=== PATIENT | female | born 1970 | race Caucasian/White ===

== ENCOUNTER → 2016-06-14 | Outpatient (CLI) | payer OTHER ==
[~2016-06-14] MED LIST: ALBU17IN INH; BACL10TA PO; CHLO125TA PO; COPA1INJ SC; DIAZ10TA2 PO; FIOR1CAP PO; MARI2.5C PO; MAXA10TA14 PO; NABU50TA PO; NUCY75TA8 PO; OXYB5TA PO; OXYC15TA76 PO; PERC10TA17 PO; PREG50CA PO; SOMA350T PO; TIZA4CAP3 PO; VICO7.5T11 PO; ZOLO100T PO; [UNRECOGNIZED DRUG - CODE] PO; tps cream TD
--- NOTE | 2016-06-16 00:17 | ECWPNPC ---
PATIENT NAME: HANSA BELTRÁN : 1970 GENDER: FEMALE VISIT DATE: 06/14/2016 DISCHARGE DATE: 06/14/161817 VISIT LOCKED DATE TIME: PHYSICIAN: SILVIA ZARAGOZA RESOURCE: SILVIA ZARAGOZA REASON FOR APPOINTMENT 1. NECK/SHOULDER PAIN HISTORY OF PRESENT ILLNESS HISTORY OF PRESENT ILLNESS: PAIN THE PATIENT DESCRIBES THE PAIN... 46 YEAR OLD FEMALE PATIENT WITH HISTORY OF CHRONIC NECK, SHOULDER, AND BACK PAIN. PATIENT DESCRIBES THE PAIN ACHING, BURNING, THROBBING, SHOOTING, AND HAVING IT ALL THE TIME WITH A PAIN SCORE OF 7/10. PATIENT STATES THAT HER PAIN STARTED MANY YEARS AGO AND HAS ALSO BEEN DIAGNOSED WITH FIBROMYALGIA AND MS. PATIENT IS CURRENTLY USING OXYCODONE, BACLOFEN, LYRICA, TIZANIDINE, AND MARINOL TO AID IN PAIN RELIEF. MRS. BELTRÁN STATES THAT EVEN WITH THE MEDICATION SHE STILL HAS A SIGNIFICANT AMOUNT OF PAIN. PATIENT REPORTS THAT SHE IS CONSTANTLY IN PAIN AND AT THIS TIME HAS NOT FOUND SIGNIFICANT RELIEF IN INTERVENTIONS. FALL RISK SCREENING: SCREENING :NO FALLS IN THE PAST YEAR CURRENT MEDICATIONS TAKING FIORICET 50-325-40 MG TABLET 1 TABLET ORALLY TWICE A DAY NEEDED FOR MIGRAINES TAKING COPAXONE 40 MG/ML SOLUTION PREFILLED SYRINGE 1 ML SUBCUTANEOUS THREE TIMES A WEEK TAKING SERTRALINE HCL 100 MG TABLET 1.5 TABLET ORALLY ONCE A DAY TAKING MAXALT-GRAIN ELEVATOR SUPERINTENDENT 10 MG TABLET DISPERSIBLE 1 TABLET ON THE TONGUE AND ALLOW TO DISSOLVE NEEDED ONE TIME ORALLY NEEDED FOR MIGRAINE--MAY REPEAT IN 2 HOURS ONCE IF NEEDED TAKING CANE _ MISCELLANEOUS DIRECTED _ DIRECTED--MS (G35) TAKING ZOFRAN ODT 4 MG TABLET DISPERSIBLE 1 TABLET ON THE TONGUE AND ALLOW TO DISSOLVE ORALLY EVERY 6 HRS NEEDED TAKING CHLORTHALIDONE 25 MG TABLET 1/2 TABLET IN THE MORNING ORALLY ONCE A DAY TAKING IPRATROPIUM-ALBUTEROL 0.5-2.5 (3) MG/3ML SOLUTION 3 ML INHALATION EVERY 4-6 HOURS NEEDED FOR SOB/WHEEZING TAKING VENTOLIN HFA 108 (90 BASE) MCG/ACT AEROSOL SOLUTION 2 PUFFS NEEDED INHALATION EVERY 4 HRS FOR WHEEZING TAKING MARINOL 5 MG CAPSULE 1 CAPSULE ORALLY TWICE A DAY MDD2 3MOS SUPPLY CAT D CHRONIC PAIN TAKING TIZANIDINE HCL 4 MG TABLET 1.5 TABLET-2TAB ORALLY DAILY AT BEDTIME TAKING OXYCODONE HCL 15 MG TABLET 1 TABLET ORALLY Q6H MDD2 3MOS SUPPLY CAT D CHRONIC PAIN TAKING LYRICA 200 MG CAPSULE 1 CAPSULE ORALLY Q8H TID MDD3 3MOS SUPPLY CAT D CHRONIC PAIN TAKING BACLOFEN 20 MG TABLET 1 TABLET WITH FOOD OR MILK ORALLY EVERY 8 HOURS NEEDED NOT-TAKING FULL KIT NEBULIZER SET . MISCELLANEOUS DIRECTED P.O. J45.299 MEDICATION LIST REVIEWED AND RECONCILED WITH THE PATIENT PAST MEDICAL HISTORY MULTIPLE SCLEROSIS OTHER DISEASES OF VOCAL CORDS FIBROMYALGIA MIGRAINES ARTHRITIS DEPRESSION ANXIETY FATIGUE CHRONIC LOW BACK PAIN ASTHMA ALLERGIES PENICILLIN (FOR ALLERGIES USE ONLY): NOT SURE OF REACTION: ALLERGY AZITHROMYCIN: ALLERGY ZYBAN: ALLERGY CECLOR: ALLERGY BACTRIM DS: ALLERGY SULFA (FOR ALLERGY USE ONLY): ANAPHYLAXIS: ALLERGY ENVIRONMENTAL: SINUS CONGESTION, RUNNY EYES: ALLERGY SURGICAL HISTORY VOCAL CHORDS RESECTED 05/2008 TONSILLECTOMY, ADENOIDS CAUTERIZED, SINUS IRRIGATED 12/1985 LEFT CARPAL TUNNEL RELEASE 03/19/2015 FAMILY HISTORY NO FAMILY HISTORY DOCUMENTED. SOCIAL HISTORY GENERAL: TOBACCO USE ARE YOU A:CURRENT SMOKER HOW MANY CIGARETTES A DAY DO YOU SMOKE?11-20 HOW SOON AFTER YOU WAKE UP DO YOU SMOKE YOUR FIRST CIGARETTE?6-30 MIN HOW OFTEN DO YOU SMOKE CIGARETTES?EVERY DAY PATIENT COUNSELED ON THE DANGERS OF TOBACCO USE AND URGED TO QUIT: COUNCELED ON THE IMPORTANCE OF QUITTING, PT STATES SHE IS NOT READY TO QUIT AT THIS TIME. ARE YOU INTERESTED IN QUITTING?NOT READY TO QUIT LEARNING BARRIERS / SPECIAL NEEDS ORIENTED TO PLAN OF CARE: PATIENT, PAIN MANAGEMENT PATIENT, ORIENTED TO PLAN OF CARE: PATIENT, PAIN MANAGEMENT PATIENT. NEW PATIENT PAIN DIARY TODAY'S VISITNOTES FROM 0-10, WHAT LEVEL IS YOUR PAIN TODAY?0 PAIN CLINIC PFS, CLERGY, PUBLIC HEALTH REFERRALS PFS REFERRAL NEEDED?NO CLERGY REFERRAL NEEDED?NO PUBLIC HEALTH REFERRAL NEEDED?NO WAS THE PROVIDER NOTIFIED OF ANY PERTINENT INFO?NO PFS REFERRAL NEEDED?NO CLERGY REFERRAL NEEDED?NO PUBLIC HEALTH REFERRAL NEEDED?NO WAS THE PROVIDER NOTIFIED OF ANY PERTINENT INFO?NO HOSPITALIZATION/MAJOR DIAGNOSTIC PROCEDURE NO HOSPITALIZATION HISTORY. REVIEW OF SYSTEMS CONSTITUTIONAL: ANY CHANGE IN YOUR MEDICAL CONDITION? NO . CHILLS NO . FEVER NO . INFECTION: DO YOU HAVE NEW INFECTIONS? NO . DO YOU HAVE HISTORY OF MRSA? NO . MUSCULOSKELETAL: ANY NEW PATTERNS OF PAIN OR NUMBNESS? NO . GASTROENTEROLOGY: ANY NEW CHANGE IN BOWEL CONTROL? NO . GENITOURINARY: ANY NEW CHANGE IN BLADDER CONTROL? NO . IS THERE A CHANCE YOU COULD BE ? NO . HEMATOLOGY/LYMPH: DO YOU TAKE ANY BLOOD THINNERS? (FOR EXAMPLE- COUMADIN, PLAVIX, AGGRENOX, PLATEL, PRADAXA, OR XARELTO) NO . WHEN WAS YOUR LAST DOSE? DATE: TIME: . NEUROLOGY: HAVE YOU FALLEN IN THE PAST 6 MONTHS? YES FELL LAST WEEK AFTER BEING DIZZY-NO INJURY . ANY NEW EXTREMITY NUMBNESS OR WEAKNESS? NO . CARDIOLOGY: DO YOU HAVE A PACEMAKER OR DEFIBRILLATOR? NO . RESPIRATORY: HAVE YOU BEEN SICK IN THE PAST WEEK? NO . FEVER NO . FLU LIKE SYMPTOMS? NO . COUGH NO . INTEGUMENTARY: DO YOU HAVE ANY RASHES OR OPEN SORES? NO . ALLERGIC/IMMUNO: ARE YOU ALLERGIC TO SHELLFISH OR IV DYE? NO . ANY NEW ALLERGIES? NO . PSYCHIATRIC: DO YOU HAVE THOUGHTS OF HURTING YOURSELF OR SOMEONE ELSE? NO . ARE YOU ABUSED, NEGLECTED, OR IN AN UNSAFE ENVIRONMENT? NO . ENDOCRINOLOGY: ARE YOU DIABETIC? NO . OTHER: DO YOU NEED ANY PRESCRIPTIONS? NO . IF YES, PLEASE LIST: ____ . ANY NEW PROBLEMS WITH YOUR MEDICATIONS? NO . WHEN DID YOU LAST EAT? ____ . WHEN DID YOU LAST DRINK? ____ . WHAT DID YOU LAST DRINK? ____ . NAME OF PERSON DRIVING YOU HOME? ____ . DO YOU HAVE ANY OTHER QUESTIONS OR CONCERNS NO . REVIEWED BY: PROVIDER: SILVIA ZARAGOZA MD . VITAL SIGNS WT 230.4 LBS, HT 65.5 IN, BMI 37.75 INDEX, BP 138/75 MM HG, HR 99 /MIN, RR 16 /MIN, TEMP 97.7 F, OXYGEN SAT % 95%, NA INITIALS SC 14:53, REVIEWED BY: AD. EXAMINATION : PATIENT IS ALERT O X 3 AND COOPERATIVE. ANTALGIC GAIT. USES CANE TO FACILITATE. RIGHT LEG IS WEAKER THEN THE LEFT AT EXTENSION AND FLEXION. RIGHT ARM AND HAND STEEL PLATE CAULKER IS WEAKER THEN THE LEFT. MRI OF THE CERVICAL SPINE DONE ON 08/12/14 SHOWS CERVICAL SPONDYLOSIS AT C3-C4 THROUGH C6-C7. MRI OF THE LUMBAR SPINE DONE ON 8/21/14 SHOWS DISC BULGES AT L3-L4 AND L4-L5 AND A DISC PROTRUSION AT L5-S1 ALONG WITH HYPERTROPHY. 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 BELTRÁN'S PAIN MANAGEMENT CASE. I WAS WITH THE PATIENT TODAY IN THE FOLLOW UP FOR OVER 25 MINUTES DISCUSSING MEDICATION OPTIONS IN COORDINATION OF HER CARE. MRS. BELTRÁN IS USING LYRICA 3 TIMES A DAY FOR THE FIBROMYALGIA AND PAIN THAT RADIATES FROM THE NECK TO THE SHOULDERS, BACLOFEN FOR THE SPASTICITY, OXYCODONE FOR THE PAIN THROUGHOUT THE BODY, TIZANIDINE FOR PAIN AND MUSCLE SPASMS, AND MARINOL. PATIENT WILL RECEIVE A REFILL OF 84 TABLETS OF OXYCODONE FOR THE MONTH SO THAT THE PATIENT HAS THE OPTION OF USING 4 ON SOME DAYS. PATIENT IS AWARE SHE NEEDS TO MAKE THE 84 TABLETS LAST THE ENTIRE MONTH. MRS. BELTRÁN IS AWARE THAT EVENTUALLY WE WOULD LIKE HER TO BE WEANED OF ALL NARCOTICS AND THE PATIENT STATES THAT SHE NEEDS THE MEDICATION TO REMAIN FUNCTIONAL AND MOBILE. URINE TOXICOLOGY DONE ON 03/12/16 SHOWS CONSISTENT RESULTS WITH THE PATIENTS MEDICATION LIST. AT THIS TIME WE WILL NOT DO ANY INTERVENTIONS THE PATIENT STATES THAT INTERVENTIONS TO NOT AID IN PAIN RELIEF. PATIENT WILL RETURN TO THE CLINIC IN 3 WEEKS TO DISCUSS OF THE MEDICATION HAS WORKED FOR HER AND DISCUSS THE CASE FURTHER. I HAVE EXPLAINED TO THE PATIENT THAT I WILL DISCONTINUE THE USE OF MARINOL. THE PATIENT UNDERSTOOD AND AGREES. INSTRUCTIONS WERE GIVEN, QUESTIONS WERE ANSWERED, PATIENT REPORTS UNDERSTANDING AND AGREES WITH THE PLAN. I, KANDICE STRONG, DOCUMENTED THE ABOVE INFORMATION ACTING A SCRIBE FOR DR. ZARAGOZA. I HAVE REVIEWED THE ABOVE DOCUMENT, WRITTEN BY KANDICE LOPEZ AND I VERIFY THAT IT IS ACCURATE. OTHERS REFILL TIZANIDINE HCL TABLET, 4 MG, 1.5 TABLET-2TAB, ORALLY, DAILY AT BEDTIME, 90 DAY(S), 180, REFILLS 1 REFILL MARINOL CAPSULE, 5 MG, 1 CAPSULE, ORALLY, TWICE A DAY MDD2 3MOS SUPPLY CAT D CHRONIC PAIN, 90 DAY(S), 180, REFILLS 0 PROCEDURE CODES FA211 ESTABILISHED PATIENT [facility] FACILITY CHARGE G8427 DOC MEDS VERIFIED W/PT OR RE L3542 PAIN ASSESS POS TOOL F/U PLAN DOC FOLLOW UP 3 WEEKS ELECTRONICALLY SIGNED BY SILVIA ZARAGOZA MD ON 06/15/2016 AT 01:58 PM EST DISCLAIMER : THIS IS A VISIT SUMMARY EXTRACTED FROM THE [employer] CHART. IT IS NOT A COPY OF THE [employer] PROGRESS NOTE. MTDD
== END ==
LOC: M PAIN 14:40
PROVIDERS: ATTEND Anesthesiology
DX: M54.5 Low back pain (principal); M47.812 Spondylosis without myelopathy or radiculopathy, cervical region; M51.16 Intervertebral disc disorders with radiculopathy, lumbar region; M51.17 Intervertebral disc disorders with radiculopathy, lumbosacral region; Z88.0 Allergy status to penicillin; Z88.1 Allergy status to other antibiotic agents; Z88.2 Allergy status to sulfonamides; J30.89 Other allergic rhinitis; Z88.8 Allergy status to other drugs, medicaments and biological substances; Z79.891 Long term (current) use of opiate analgesic; F17.200 Nicotine dependence, unspecified, uncomplicated

== ENCOUNTER → 2016-07-05 | Outpatient (CLI) | payer OTHER ==
--- NOTE | 2016-07-10 00:18 | ECWPNPC ---
PATIENT NAME: HANSA BELTRÁN : 1970 GENDER: FEMALE VISIT DATE: 07/05/2016 DISCHARGE DATE: 07/05/16 1425 VISIT LOCKED DATE TIME: PHYSICIAN: SILVIA ZARAGOZA RESOURCE: SILVIA ZARAGOZA REASON FOR APPOINTMENT 1. BACK PAIN HISTORY OF PRESENT ILLNESS HISTORY OF PRESENT ILLNESS: PAIN THE PATIENT DESCRIBES THE PAIN... 46 YEAR OLD FEMALE PATIENT WITH HISTORY OF CHRONIC BACK PAIN. PATIENT DESCRIBES THE PAIN ACHING, BURNING, SHARP, STABBING, THROBBING, AND HAVING IT ALL THE TIME WITH A PAIN SCORE OF 7/10. PATIENT STATES THAT HER PAIN STARTED MANY YEARS AGO AND HAS ALSO BEEN DIAGNOSED WITH FIBROMYALGIA AND MS. PATIENT IS CURRENTLY USING OXYCODONE, BACLOFEN, LYRICA, TIZANIDINE, AND MARINOL TO AID IN PAIN RELIEF. MRS. BELTRÁN STATES THAT EVEN WITH THE MEDICATION SHE STILL HAS A SIGNIFICANT AMOUNT OF PAIN. PATIENT REPORTS THAT SHE IS CONSTANTLY IN PAIN AND AT THIS TIME HAS NOT FOUND SIGNIFICANT RELIEF IN INTERVENTIONS. HOWEVER, MRS. BELTRÁN DOES NOT WANT TO USE THE NARCOTICS FOR THE REST OF HER LIFE AND WOULD LIKE TO SLOWLY STOP USING THEM. PATIENT DENIES UNEXPLAINABLE WEIGHT LOSS, FEVER, CHILLS, NEW CHANGES ON HER URINARY OR BOWEL CONTROL. FALL RISK SCREENING: SCREENING :NO FALLS IN THE PAST YEAR CURRENT MEDICATIONS TAKING TIZANIDINE HCL 4 MG TABLET 1.5 TABLET-2TAB ORALLY DAILY AT BEDTIME TAKING MARINOL 5 MG CAPSULE 1 CAPSULE ORALLY TWICE A DAY MDD2 3MOS SUPPLY CAT D CHRONIC PAIN TAKING LYRICA 200 MG CAPSULE 1 CAPSULE ORALLY Q8H TID MDD3 3MOS SUPPLY CAT D CHRONIC PAIN TAKING BACLOFEN 20 MG TABLET 1 TABLET WITH FOOD OR MILK ORALLY EVERY 8 HOURS NEEDED TAKING OXYCODONE HCL 15 MG TABLET 1 TABLET ORALLY Q6H PRN FOR PAIN MMD4 TAKING FIORICET 50-325-40 MG TABLET 1 TABLET ORALLY TWICE A DAY NEEDED FOR MIGRAINES TAKING COPAXONE 40 MG/ML SOLUTION PREFILLED SYRINGE 1 ML SUBCUTANEOUS THREE TIMES A WEEK TAKING SERTRALINE HCL 100 MG TABLET 1.5 TABLET ORALLY ONCE A DAY TAKING MAXALT-CAR WASHER 10 MG TABLET DISPERSIBLE 1 TABLET ON THE TONGUE AND ALLOW TO DISSOLVE NEEDED ONE TIME ORALLY NEEDED FOR MIGRAINE--MAY REPEAT IN 2 HOURS ONCE IF NEEDED TAKING CANE _ MISCELLANEOUS DIRECTED _ DIRECTED--MS (G35) TAKING ZOFRAN ODT 4 MG TABLET DISPERSIBLE 1 TABLET ON THE TONGUE AND ALLOW TO DISSOLVE ORALLY EVERY 6 HRS NEEDED TAKING CHLORTHALIDONE 25 MG TABLET 1/2 TABLET IN THE MORNING ORALLY ONCE A DAY TAKING IPRATROPIUM-ALBUTEROL 0.5-2.5 (3) MG/3ML SOLUTION 3 ML INHALATION EVERY 4-6 HOURS NEEDED FOR SOB/WHEEZING TAKING VENTOLIN HFA 108 (90 BASE) MCG/ACT AEROSOL SOLUTION 2 PUFFS NEEDED INHALATION EVERY 4 HRS FOR WHEEZING NOT-TAKING FULL KIT NEBULIZER SET . MISCELLANEOUS DIRECTED P.O. J45.909 MEDICATION LIST REVIEWED AND RECONCILED WITH THE PATIENT PAST MEDICAL HISTORY MULTIPLE SCLEROSIS OTHER DISEASES OF VOCAL CORDS FIBROMYALGIA MIGRAINES ARTHRITIS DEPRESSION ANXIETY FATIGUE CHRONIC LOW BACK PAIN ASTHMA ALLERGIES PENICILLIN (FOR ALLERGIES USE ONLY): NOT SURE OF REACTION: ALLERGY AZITHROMYCIN: ALLERGY ZYBAN: ALLERGY CECLOR: ALLERGY BACTRIM DS: ALLERGY SULFA (FOR ALLERGY USE ONLY): ANAPHYLAXIS: ALLERGY ENVIRONMENTAL: SINUS CONGESTION, RUNNY EYES: ALLERGY SURGICAL HISTORY VOCAL CHORDS RESECTED 05/2008 TONSILLECTOMY, ADENOIDS CAUTERIZED, SINUS IRRIGATED 12/1985 LEFT CARPAL TUNNEL RELEASE 03/19/2015 FAMILY HISTORY NO FAMILY HISTORY DOCUMENTED. SOCIAL HISTORY GENERAL: TOBACCO USE ARE YOU A:CURRENT SMOKER HOW MANY CIGARETTES A DAY DO YOU SMOKE?11-20 HOW SOON AFTER YOU WAKE UP DO YOU SMOKE YOUR FIRST CIGARETTE?31-60 MIN HOW OFTEN DO YOU SMOKE CIGARETTES?EVERY DAY PATIENT COUNSELED ON THE DANGERS OF TOBACCO USE AND URGED TO QUIT: COUNCELED ON THE IMPORTANCE OF QUITTING. ARE YOU INTERESTED IN QUITTING?NOT READY TO QUIT LEARNING BARRIERS / SPECIAL NEEDS ORIENTED TO PLAN OF CARE: PATIENT, PAIN MANAGEMENT PATIENT, ORIENTED TO PLAN OF CARE: PATIENT, PAIN MANAGEMENT PATIENT. NEW PATIENT PAIN DIARY TODAY'S VISITNOTES FROM 0-10, WHAT LEVEL IS YOUR PAIN TODAY?0 PAIN CLINIC PFS, CLERGY, PUBLIC HEALTH REFERRALS PFS REFERRAL NEEDED?NO CLERGY REFERRAL NEEDED?NO PUBLIC HEALTH REFERRAL NEEDED?NO WAS THE PROVIDER NOTIFIED OF ANY PERTINENT INFO?NO PFS REFERRAL NEEDED?NO CLERGY REFERRAL NEEDED?NO PUBLIC HEALTH REFERRAL NEEDED?NO WAS THE PROVIDER NOTIFIED OF ANY PERTINENT INFO?NO HOSPITALIZATION/MAJOR DIAGNOSTIC PROCEDURE NO HOSPITALIZATION HISTORY. REVIEW OF SYSTEMS CONSTITUTIONAL: ANY CHANGE IN YOUR MEDICAL CONDITION? NO . CHILLS NO . FEVER NO . INFECTION: DO YOU HAVE NEW INFECTIONS? NO . DO YOU HAVE HISTORY OF MRSA? NO . MUSCULOSKELETAL: ANY NEW PATTERNS OF PAIN OR NUMBNESS? NO . GASTROENTEROLOGY: ANY NEW CHANGE IN BOWEL CONTROL? NO . GENITOURINARY: ANY NEW CHANGE IN BLADDER CONTROL? NO . IS THERE A CHANCE YOU COULD BE ? NO . HEMATOLOGY/LYMPH: DO YOU TAKE ANY BLOOD THINNERS? (FOR EXAMPLE- COUMADIN, PLAVIX, AGGRENOX, PLATEL, PRADAXA, OR XARELTO) NO . WHEN WAS YOUR LAST DOSE? DATE: TIME: . NEUROLOGY: HAVE YOU FALLEN IN THE PAST 6 MONTHS? YES, APPROX 1 MONTHS AGO, NO INJURY . ANY NEW EXTREMITY NUMBNESS OR WEAKNESS? NO . CARDIOLOGY: DO YOU HAVE A PACEMAKER OR DEFIBRILLATOR? NO . RESPIRATORY: HAVE YOU BEEN SICK IN THE PAST WEEK? NO . FEVER NO . FLU LIKE SYMPTOMS? NO . COUGH NO . INTEGUMENTARY: DO YOU HAVE ANY RASHES OR OPEN SORES? NO . ALLERGIC/IMMUNO: ARE YOU ALLERGIC TO SHELLFISH OR IV DYE? NO . ANY NEW ALLERGIES? NO . PSYCHIATRIC: DO YOU HAVE THOUGHTS OF HURTING YOURSELF OR SOMEONE ELSE? NO . ARE YOU ABUSED, NEGLECTED, OR IN AN UNSAFE ENVIRONMENT? NO . ENDOCRINOLOGY: ARE YOU DIABETIC? NO . OTHER: DO YOU NEED ANY PRESCRIPTIONS? YES NOT SURE--STATES MEDS MAY BE CHANGED. . IF YES, PLEASE LIST: ____ . ANY NEW PROBLEMS WITH YOUR MEDICATIONS? NO . WHEN DID YOU LAST EAT? ____ . WHEN DID YOU LAST DRINK? ____ . WHAT DID YOU LAST DRINK? ____ . NAME OF PERSON DRIVING YOU HOME? ____ . DO YOU HAVE ANY OTHER QUESTIONS OR CONCERNS NO . REVIEWED BY: PROVIDER: SILVIA ZARAGOZA MD . VITAL SIGNS WT 230 LBS, HT 65.5 IN, BMI 37.69 INDEX, BP 133/74 MM HG, HR 85 /MIN, RR 16 /MIN, TEMP 97.5 F, OXYGEN SAT % 96, NA INITIALS TL 1331, REVIEWED BY: AD. EXAMINATION : PATIENT IS ALERT O X 3 AND COOPERATIVE. ANTALGIC GAIT. USES CANE TO FACILITATE. RIGHT LEG IS WEAKER THEN THE LEFT AT EXTENSION AND FLEXION. RIGHT ARM AND HAND ASSEMBLING MACHINE OPERATOR IS WEAKER THEN THE LEFT. MRI OF THE CERVICAL SPINE DONE ON 08/12/14 SHOWS CERVICAL SPONDYLOSIS AT C3-C4 THROUGH C6-C7. MRI OF THE LUMBAR SPINE DONE ON 01/17/14 SHOWS DISC BULGES AT L3-L4 AND L4-L5 AND A DISC PROTRUSION AT L5-S1 ALONG WITH HYPERTROPHY. 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 BELTRÁN'S PAIN MANAGEMENT CASE. I WAS WITH THE PATIENT TODAY IN THE FOLLOW UP FOR OVER 25 MINUTES DISCUSSING MEDICATION OPTIONS IN COORDINATION OF HER CARE. MRS. BELTRÁN IS USING LYRICA 3 TIMES A DAY FOR THE FIBROMYALGIA AND PAIN THAT RADIATES FROM THE NECK TO THE SHOULDERS, BACLOFEN FOR THE SPASTICITY, OXYCODONE FOR THE PAIN THROUGHOUT THE BODY, TIZANIDINE FOR PAIN AND MUSCLE SPASMS, AND MARINOL. PATIENT WILL RECEIVE A REFILL OF 84 TABLETS OF OXYCODONE FOR THE MONTH SO THAT THE PATIENT HAS THE OPTION OF USING 4 ON SOME DAYS. PATIENT IS AWARE SHE NEEDS TO MAKE THE 84 TABLETS LAST THE ENTIRE MONTH. MRS. BELTRÁN IS AWARE THAT EVENTUALLY WE WOULD LIKE HER TO BE WEANED OF ALL NARCOTICS AND THE PATIENT STATES THAT SHE NEEDS THE MEDICATION TO REMAIN FUNCTIONAL AND MOBILE. URINE TOXICOLOGY DONE ON 03/12/16 SHOWS CONSISTENT RESULTS WITH THE PATIENTS MEDICATION LIST. AT THIS TIME WE WILL NOT DO ANY INTERVENTIONS THE PATIENT STATES THAT INTERVENTIONS TO NOT AID IN PAIN RELIEF. PATIENT WILL RETURN TO THE CLINIC IN 3 WEEKS TO DISCUSS OF THE MEDICATION HAS WORKED FOR HER AND DISCUSS THE CASE FURTHER. I HAVE EXPLAINED TO THE PATIENT THAT I WILL DISCONTINUE THE USE OF MARINOL. THE PATIENT UNDERSTOOD AND AGREES. INSTRUCTIONS WERE GIVEN, QUESTIONS WERE ANSWERED, PATIENT REPORTS UNDERSTANDING AND AGREES WITH THE PLAN. I, KANDICE STRONG, DOCUMENTED THE ABOVE INFORMATION ACTING A SCRIBE FOR DR. ZARAGOZA. I HAVE REVIEWED THE ABOVE DOCUMENT, WRITTEN BY KANDICE GILLETTEIBTeddy AND I VERIFY THAT IT IS ACCURATE. PROCEDURE CODES FA211 ESTABILISHED PATIENT [facility] FACILITY CHARGE G8427 DOC MEDS VERIFIED W/PT OR RE G9230 PAIN ASSESS POS TOOL F/U PLAN DOC FOLLOW UP CHRISTELLE AFTER APPROVAL ELECTRONICALLY SIGNED BY SILVIA ZARAGOZA MD ON 07/09/2016 AT 01:37 PM EST DISCLAIMER : THIS IS A VISIT SUMMARY EXTRACTED FROM THE [email or web address] CHART. IT IS NOT A COPY OF THE [email or web address] PROGRESS NOTE. ROMELIA
== END ==
LOC: M PAIN 13:20
PROVIDERS: ATTEND Anesthesiology
DX: Z09 Encounter for follow-up examination after completed treatment for conditions other than malignant neoplasm (principal); G89.29 Other chronic pain; M54.5 Low back pain; M47.812 Spondylosis without myelopathy or radiculopathy, cervical region; M51.16 Intervertebral disc disorders with radiculopathy, lumbar region; M51.17 Intervertebral disc disorders with radiculopathy, lumbosacral region; G35 Multiple sclerosis; J38.3 Other diseases of vocal cords; M79.7 Fibromyalgia; G43.909 Migraine, unspecified, not intractable, without status migrainosus; M19.90 Unspecified osteoarthritis, unspecified site; F32.9 Major depressive disorder, single episode, unspecified; F41.9 Anxiety disorder, unspecified; J45.909 Unspecified asthma, uncomplicated; F17.200 Nicotine dependence, unspecified, uncomplicated; Z88.0 Allergy status to penicillin; Z88.1 Allergy status to other antibiotic agents; Z88.8 Allergy status to other drugs, medicaments and biological substances; Z88.2 Allergy status to sulfonamides; Z79.891 Long term (current) use of opiate analgesic; Z79.899 Other long term (current) drug therapy

== ENCOUNTER → 2016-08-20 | Outpatient (CLI) | payer OTHER ==
--- NOTE | 2016-08-27 00:50 | ECWPNPC ---
PATIENT NAME: HANSA BELTRÁN : 1970 GENDER: FEMALE VISIT DATE: 08/20/2016 DISCHARGE DATE: 08/20/16 1552 VISIT LOCKED DATE TIME: PHYSICIAN: SILVIA ZARAGOZA RESOURCE: SILVIA ZARAGOZA REASON FOR APPOINTMENT 1. POST PROCEDURE HISTORY OF PRESENT ILLNESS HISTORY OF PRESENT ILLNESS: PAIN THE PATIENT DESCRIBES THE PAIN... 46 YEAR OLD FEMALE PATIENT WITH HISTORY OF CHRONIC BACK PAIN. PATIENT DESCRIBES THE PAIN ACHING, BURNING, THROBBING SOMETIMES, SHOOTING, AND HAVING IT ALL THE TIME WITH A PAIN SCORE OF 8/10 ON TODAY'S VISIT. PATIENT STATES THAT HER PAIN STARTED MANY YEARS AGO AND HAS ALSO BEEN DIAGNOSED WITH FIBROMYALGIA AND MS. PATIENT IS CURRENTLY USING OXYCODONE, BACLOFEN, LYRICA, TIZANIDINE, AND MARINOL TO AID IN PAIN RELIEF. MRS. BELTRÁN STATES THAT EVEN WITH THE MEDICATION SHE STILL HAS A SIGNIFICANT AMOUNT OF PAIN. PATIENT REPORTS THAT SHE IS CONSTANTLY IN PAIN AND AT THIS TIME HAS NOT FOUND SIGNIFICANT RELIEF IN INTERVENTIONS. PATIENT REPORTS THAT DR. COLES HER PRIMARY IS NOW GOING TO PRESCRIBE HER LYRICA. PATIENT REPORTS THAT SHE HAS NOT YET SEEN DR. MITCHELL AT THIS TIME, BUT HAS AN UPCOMING APPOINTMENT WITH HIM IN THE NEXT COUPLE OF WEEKS. , PATIENT DENIES UNEXPLAINABLE WEIGHT LOSS, FEVER, CHILLS, NEW CHANGES ON HER URINARY OR BOWEL CONTROL. FALL RISK SCREENING: SCREENING :NO FALLS IN THE PAST YEAR CURRENT MEDICATIONS TAKING TIZANIDINE HCL 4 MG TABLET 1.5 TABLET-2TAB ORALLY DAILY AT BEDTIME TAKING FIORICET 50-325-40 MG TABLET 1 TABLET ORALLY TWICE A DAY NEEDED FOR MIGRAINES TAKING COPAXONE 40 MG/ML SOLUTION PREFILLED SYRINGE 1 ML SUBCUTANEOUS THREE TIMES A WEEK TAKING SERTRALINE HCL 100 MG TABLET 1.5 TABLET ORALLY ONCE A DAY TAKING MAXALT-BEAUTY DIRECTOR 10 MG TABLET DISPERSIBLE 1 TABLET ON THE TONGUE AND ALLOW TO DISSOLVE NEEDED ONE TIME ORALLY NEEDED FOR MIGRAINE--MAY REPEAT IN 2 HOURS ONCE IF NEEDED TAKING CANE _ MISCELLANEOUS DIRECTED _ DIRECTED--MS (G35) TAKING CHLORTHALIDONE 25 MG TABLET 1/2 TABLET IN THE MORNING ORALLY ONCE A DAY TAKING IPRATROPIUM-ALBUTEROL 0.5-2.5 (3) MG/3ML SOLUTION 3 ML INHALATION EVERY 4-6 HOURS NEEDED FOR SOB/WHEEZING TAKING VENTOLIN HFA 108 (90 BASE) MCG/ACT AEROSOL SOLUTION 2 PUFFS NEEDED INHALATION EVERY 4 HRS FOR WHEEZING TAKING SOMA 350 MG TABLET 1 ORALLY BEFORE BEDTIME MDD1 TAKING LYRICA 200 MG CAPSULE 1 CAPSULE ORALLY Q8H TID MDD3 TAKING BACLOFEN 20 MG TABLET 1 TABLET WITH FOOD OR MILK ORALLY EVERY 8 HOURS NEEDED TAKING ZOFRAN ODT 4 MG TABLET DISPERSIBLE 1 TABLET ON THE TONGUE AND ALLOW TO DISSOLVE ORALLY EVERY 6 HRS NEEDED NOT-TAKING FULL KIT NEBULIZER SET . MISCELLANEOUS DIRECTED P.O. J45.909 MEDICATION LIST REVIEWED AND RECONCILED WITH THE PATIENT PAST MEDICAL HISTORY MULTIPLE SCLEROSIS OTHER DISEASES OF VOCAL CORDS FIBROMYALGIA MIGRAINES ARTHRITIS DEPRESSION ANXIETY FATIGUE CHRONIC LOW BACK PAIN ASTHMA ALLERGIES PENICILLIN (FOR ALLERGIES USE ONLY): NOT SURE OF REACTION: ALLERGY AZITHROMYCIN: ALLERGY ZYBAN: ALLERGY CECLOR: ALLERGY BACTRIM DS: ALLERGY SULFA (FOR ALLERGY USE ONLY): ANAPHYLAXIS: ALLERGY ENVIRONMENTAL: SINUS CONGESTION, RUNNY EYES: ALLERGY SURGICAL HISTORY VOCAL CHORDS RESECTED 05/2008 TONSILLECTOMY, ADENOIDS CAUTERIZED, SINUS IRRIGATED 12/1985 LEFT CARPAL TUNNEL RELEASE 03/19/2015 FAMILY HISTORY NO FAMILY HISTORY DOCUMENTED. SOCIAL HISTORY GENERAL: TOBACCO USE HOW SOON AFTER YOU WAKE UP DO YOU SMOKE YOUR FIRST CIGARETTE?31-60 MIN HOW OFTEN DO YOU SMOKE CIGARETTES?EVERY DAY ARE YOU INTERESTED IN QUITTING?NOT READY TO QUIT HOW MANY CIGARETTES A DAY DO YOU SMOKE?11-20 ARE YOU A:CURRENT SMOKER PATIENT COUNSELED ON THE DANGERS OF TOBACCO USE AND URGED TO QUIT: COUNCELED ON THE IMPORTANCE OF QUITTING. BMI CARE GOAL FOLLOW-UP ABOVE NORMAL BMI FOLLOW-UPGIVING ENCOURAGEMENT TO EXERCISE OCCUPATION: UNEMPLOYEED. MARITAL STATUS: . JAINISM: NO MORAVIAN BELIEFS THAT WOULD IMPACT HEALTH CARE. LANGUAGE: KENYAN. LEARNING BARRIERS / SPECIAL NEEDS CHANGE FROM LAST VISIT?NO BARRIERS TO LEARNING?NO HEARING IMPAIRED?NO VISION IMPAIRED?NO COGNITIVELY IMPAIRED?NO READINESS TO LEARN?YES LEARNING PREFERENCES?NO LEARNING CAPABILITIES PRESENT?YES EMOTIONAL BARRIERS?NO SPECIAL DEVICES?NO DATA OFFICER NEEDED?NO NEW PATIENT PAIN DIARY TODAY'S VISITNOTES FROM 0-10, WHAT LEVEL IS YOUR PAIN TODAY?0 PAIN CLINIC PFS, CLERGY, PUBLIC HEALTH REFERRALS PFS REFERRAL NEEDED?NO CLERGY REFERRAL NEEDED?NO PUBLIC HEALTH REFERRAL NEEDED?NO WAS THE PROVIDER NOTIFIED OF ANY PERTINENT INFO?NO PFS REFERRAL NEEDED?NO CLERGY REFERRAL NEEDED?NO PUBLIC HEALTH REFERRAL NEEDED?NO WAS THE PROVIDER NOTIFIED OF ANY PERTINENT INFO?NO HOSPITALIZATION/MAJOR DIAGNOSTIC PROCEDURE NO HOSPITALIZATION HISTORY. REVIEW OF SYSTEMS CONSTITUTIONAL: ANY CHANGE IN YOUR MEDICAL CONDITION? NO . CHILLS NO . FEVER NO . INFECTION: DO YOU HAVE NEW INFECTIONS? NO . DO YOU HAVE HISTORY OF MRSA? NO . MUSCULOSKELETAL: ANY NEW PATTERNS OF PAIN OR NUMBNESS? NO . GASTROENTEROLOGY: ANY NEW CHANGE IN BOWEL CONTROL? NO . GENITOURINARY: ANY NEW CHANGE IN BLADDER CONTROL? NO . IS THERE A CHANCE YOU COULD BE ? NO . HEMATOLOGY/LYMPH: DO YOU TAKE ANY BLOOD THINNERS? (FOR EXAMPLE- COUMADIN, PLAVIX, AGGRENOX, PLATEL, PRADAXA, OR XARELTO) NO . WHEN WAS YOUR LAST DOSE? DATE: TIME: . NEUROLOGY: HAVE YOU FALLEN IN THE PAST 6 MONTHS? YES NO ED EVAL . ANY NEW EXTREMITY NUMBNESS OR WEAKNESS? NO . CARDIOLOGY: DO YOU HAVE A PACEMAKER OR DEFIBRILLATOR? NO . RESPIRATORY: HAVE YOU BEEN SICK IN THE PAST WEEK? NO . FEVER NO . FLU LIKE SYMPTOMS? NO . COUGH NO . INTEGUMENTARY: DO YOU HAVE ANY RASHES OR OPEN SORES? NO . ALLERGIC/IMMUNO: ARE YOU ALLERGIC TO SHELLFISH OR IV DYE? NO . ANY NEW ALLERGIES? NO . PSYCHIATRIC: DO YOU HAVE THOUGHTS OF HURTING YOURSELF OR SOMEONE ELSE? NO . ARE YOU ABUSED, NEGLECTED, OR IN AN UNSAFE ENVIRONMENT? NO . ENDOCRINOLOGY: ARE YOU DIABETIC? NO . OTHER: DO YOU NEED ANY PRESCRIPTIONS? NO . IF YES, PLEASE LIST: ____ . ANY NEW PROBLEMS WITH YOUR MEDICATIONS? NO . WHEN DID YOU LAST EAT? ____ . WHEN DID YOU LAST DRINK? ____ . WHAT DID YOU LAST DRINK? ____ . NAME OF PERSON DRIVING YOU HOME? ____ . DO YOU HAVE ANY OTHER QUESTIONS OR CONCERNS NO . REVIEWED BY: PROVIDER: SILVIA ZARAGOZA MD . VITAL SIGNS WT 229.2 LBS, HT 65.5 IN, BMI 37.56 INDEX, BP 128/82 MM HG, HR 109 /MIN, RR 18 /MIN, TEMP 97.8 F, OXYGEN SAT % 94%, NA INITIALS SC 14:05, REVIEWED BY: MLF. EXAMINATION : PATIENT IS ALERT O X 3 AND COOPERATIVE. PATIENT AMBULATES WITH A LIMP ON THE RIGHT LEG HOLDING A CANE ON THE ARM HAND. PATIENT RIGHT LEG IS WEAKER AT FLEXION AND EXTENSION. PATIENT HAS 11 POTENTIAL ACHE POINTS DUE TO FIBROMYALGIA. MRI OF THE CERVICAL SPINE DONE ON 08/12/14 SHOWS CERVICAL SPONDYLOSIS AT C3-C4 THROUGH C6-C7. MRI OF THE LUMBAR SPINE DONE ON 01/17/14 SHOWS DISC BULGES AT L3-L4 AND L4-L5 AND A DISC PROTRUSION AT L5-S1 ALONG WITH HYPERTROPHY. ASSESSMENTS MULTIPLE SCLEROSIS - G35 (PRIMARY), SHE HAS BEEN ON COPAXONE THERAPY SINCE MARCH 2008 AND IS FOLLOWED BY A NEUROLOGIST USUALLY FAIRLY REGULARLY. SHE IS OVERDUE. SHE HAS A CHRONIC PAIN SYNDROME RELATED TO HER MS AND IS QUITE DEBILITATED BY THAT. SHE IS TREATED WITH MULTIPLE MEDICATIONS INCLUDING MARINOL BY THE PAIN CLINIC, AND SHE WAS ALSO PRESCRIBED OXYCONTIN MORE RECENTLY; SHE HAS HAD TRIGGER POINT INJECTIONS WITHOUT MUCH BENEFIT. SHE WAS INTOLERANT OF MORPHINE. SHE SHOULD USE A CANE. FIBROMYALGIA - M79.7, FIBROMYALGIA IS THE WORKING DIAGNOSIS AND ?CONFIRMED BY HER INSPECTOR [employer] COMPOSITE. SHE HAS THIS DIAGNOSIS DOCUMENTED IN NEUROLOGIST NOTES AND IS REFERRED TO IN HER PAIN CLINIC EVALUATIONS. LOW BACK PAIN - M54.5 INTERVERTEBRAL DISC DISORDERS WITH RADICULOPATHY, LUMBAR REGION - M51.16 INTERVERTEBRAL DISC DISORDERS WITH RADICULOPATHY, LUMBOSACRAL REGION - M51.17 TREATMENT MULTIPLE SCLEROSIS NOTES: WE DISCUSSED SEVERAL ISSUES WITH MRS. BELTRÁN'S PAIN MANAGEMENT CASE. I WAS WITH THE PATIENT MORE THAN 30 MINUTES IN THE ENCOUNTER TODAY, MORE THAN HALF THE TIME WAS DEDICATED TO DISCUSSING ALTERNATIVES, COUNSELING IN HOW SHE CAN ATTEMPT TO MANAGE HER PAIN WITHOUT MEDICATION, AND PAIN MEDICATION MANAGEMENT. INFORMED THE PATIENT TO DISCUSS WITH DR. MITCHELL ABOUT CHANGING SERTRALINE TO CYMBALTA. AT THIS TIME I WILL BEGIN TO WEAN THE PATIENT OFF BACLOFEN, DISCUSSED IN DETAIL ABOUT NOT STOPPING THE MEDICATION COMPLETELY AND TO DO IT SLOWLY. I WILL HAVE THE PATIENT START ON CELEBREX. I DISCUSSED EXTENSIVELY OTHER ALTERNATIVES SUCH MEDIATION. IT WAS CONVEY TO THE PATIENT HOW CHALLENGING COULD BE THE TREATMENT OF FIBROMYALGIA. PATIENT WILL FOLLOW UP WITH ME IN 6 WEEKS. , INSTRUCTIONS WERE GIVEN, QUESTIONS WERE ANSWERED, PATIENT REPORTS UNDERSTANDING AND AGREES WITH THE PLAN. I, MINOO EDWARD, DOCUMENTED THE ABOVE INFORMATION ACTING A SCRIBE FOR DR. ZARAGOZA. I HAVE REVIEWED THE ABOVE DOCUMENT, WRITTEN BY MINOO LOPEZ AND I VERIFY THAT IT IS ACCURATE. PROCEDURE CODES FA211 ESTABILISHED PATIENT [facility] CHARGE G8730 PAIN ASSESS POS TOOL F/U PLAN DOC G8427 DOC MEDS VERIFIED W/PT OR RE DISPOSITION & COMMUNICATION FOLLOW UP 6 WEEKS ELECTRONICALLY SIGNED BY SILVIA ZARAGOZA MD ON 08/26/2016 AT 01:40 PM EDT DISCLAIMER : THIS IS A VISIT SUMMARY EXTRACTED FROM THE [employer] CHART. IT IS NOT A COPY OF THE [employer] PROGRESS NOTE. MTDD
== END | disposition home or self-care (01) ==
LOC: M PAIN 14:00
PROVIDERS: ATTEND Anesthesiology
DX: Z09 Encounter for follow-up examination after completed treatment for conditions other than malignant neoplasm (principal); G89.29 Other chronic pain; G35 Multiple sclerosis; M79.7 Fibromyalgia; M54.5 Low back pain; M51.16 Intervertebral disc disorders with radiculopathy, lumbar region; M51.17 Intervertebral disc disorders with radiculopathy, lumbosacral region; J45.909 Unspecified asthma, uncomplicated; M19.90 Unspecified osteoarthritis, unspecified site; F41.9 Anxiety disorder, unspecified; F33.9 Major depressive disorder, recurrent, unspecified; J38.3 Other diseases of vocal cords; Z79.899 Other long term (current) drug therapy; Z79.891 Long term (current) use of opiate analgesic; Z88.0 Allergy status to penicillin; Z88.1 Allergy status to other antibiotic agents; Z88.2 Allergy status to sulfonamides; Z88.8 Allergy status to other drugs, medicaments and biological substances; J30.9 Allergic rhinitis, unspecified; F17.210 Nicotine dependence, cigarettes, uncomplicated

== ENCOUNTER → 2016-12-08 | Outpatient (REF) | payer OTHER ==
[~2016-12-08] MED LIST changes: +NABU500T PO; -NABU50TA PO; +NUCY75TA3 PO; -NUCY75TA8 PO; -OXYB5TA PO; +OXYB5TAB10 PO; -PERC10TA17 PO; +PERC10TA26 PO
[2016-12-08 20:08] LABS: ALBUMIN 3.7 GM/DL (3.2-5.2); ALKALINE PHOSPHATASE 141 U/L (45-117); ALT/SGPT 26 U/L (12-78); ANION GAP 5 MEQ/L (8-16); AST/SGOT 16 U/L (15-37); BILIRUBIN,TOTAL 0.3 MG/DL (0.2-1.0); BLOOD UREA NITROGEN 13 MG/DL (7-18); CALCIUM LEVEL 9.1 MG/DL (8.5-10.1); CARBON DIOXIDE LEVEL 30 MEQ/L (21-32); CHLORIDE LEVEL 103 MEQ/L (98-107); CREATININE FOR GFR 0.74 MG/DL (0.55-1.02); GLOMERULAR FILTRATION RATE > 60.0 (>58); GLUCOSE, FASTING 66 MG/DL (70-105); POTASSIUM SERUM 4.1 MEQ/L (3.5-5.1); SODIUM LEVEL 138 MEQ/L (136-145); TOTAL PROTEIN 7.4 GM/DL (6.4-8.2)
[2016-12-08 20:12] LABS: MEAN CORPUSCULAR HEMOGLOBIN 33.4 pg (27.0-33.0); MEAN CORPUSCULAR VOLUME 98.3 fl (80.0-96.0); RED CELL DISTRIBUTION WIDTH 13.1 % (11.5-14.5); WHITE BLOOD COUNT 8.7 K/mm3 (4.0-10.0)
== END ==
LOC: M SFHCPLAZ 14:53
PROVIDERS: ATTEND Internal Medicine
DX: R53.83 Other fatigue (principal); G35 Multiple sclerosis; E55.9 Vitamin D deficiency, unspecified

== ENCOUNTER → 2018-02-06 | Outpatient (REF) | payer OTHER ==
[2018-02-06 18:31] LABS: HEMATOCRIT 42.8 % (36.0-47.0); HEMOGLOBIN 14.5 g/dl (12.0-15.5); MEAN CORPUSCULAR HEMOGLOBIN 32.6 pg (27.0-33.0); MEAN CORPUSCULAR HGB CONC 33.9 g/dl (32.0-36.5); MEAN CORPUSCULAR VOLUME 96.2 fl (80.0-96.0); PLATELET COUNT, AUTOMATED 316 10^3/uL (150-450); RED BLOOD COUNT 4.45 10^6/uL (4.00-5.40); RED CELL DISTRIBUTION WIDTH 14.4 % (11.5-14.5)
[2018-02-06 23:50] LABS: ALBUMIN 4.2 GM/DL (3.2-5.2); ALKALINE PHOSPHATASE 140 U/L (45-117); ALT/SGPT 41 U/L (12-78); ANION GAP 7 MEQ/L (8-16); AST/SGOT 21 U/L (7-37); BILIRUBIN,TOTAL 0.4 MG/DL (0.2-1.0); BLOOD UREA NITROGEN 12 MG/DL (7-18); CALCIUM LEVEL 9.6 MG/DL (8.5-10.1); CARBON DIOXIDE LEVEL 29 MEQ/L (21-32); CHLORIDE LEVEL 104 MEQ/L (98-107); CREATININE FOR GFR 0.74 MG/DL (0.55-1.30); GLOMERULAR FILTRATION RATE > 60.0 (>58); GLUCOSE, FASTING 77 MG/DL (70-100); MAGNESIUM LEVEL 2.3 MG/DL (1.8-2.4); POTASSIUM SERUM 4.6 MEQ/L (3.5-5.1); SODIUM LEVEL 140 MEQ/L (136-145); TOTAL PROTEIN 7.8 GM/DL (6.4-8.2)
[2018-02-07 00:14] LABS: ALBUMIN/GLOBULIN RATIO 1.17 (1.00-1.93)
== END ==
LOC: M SFHCPLAZ 15:18
DX: R53.83 Other fatigue (principal); R60.0 Localized edema; E55.9 Vitamin D deficiency, unspecified
CPT/HCPCS: 83735

== ENCOUNTER → 2018-10-25 | Outpatient (REF) | payer OTHER ==
[~2018-10-25] MED LIST changes: +BACL-60 PO; -BACL10TA PO; +NABU-126 PO; -NABU500T PO; +NUCY75TA11 PO; -NUCY75TA3 PO; +TIZA4CAP PO; -TIZA4CAP3 PO
[2018-10-25 18:42] LABS: HEMATOCRIT 43.8 % (36.0-47.0); HEMOGLOBIN 14.8 g/dl (12.0-15.5); MEAN CORPUSCULAR HGB CONC 33.8 g/dl (32.0-36.5); MEAN CORPUSCULAR VOLUME 94.6 fl (80.0-96.0); PLATELET COUNT, AUTOMATED 341 10^3/uL (150-450); RED BLOOD COUNT 4.63 10^6/uL (4.00-5.40); WHITE BLOOD COUNT 10.1 10^3/uL (4.0-10.0)
[2018-10-25 18:51] LABS: ALT/SGPT 27 U/L (12-78); BILIRUBIN,TOTAL 0.3 MG/DL (0.2-1.0); BLOOD UREA NITROGEN 19 MG/DL (7-18); CALCIUM LEVEL 9.4 MG/DL (8.5-10.1); CARBON DIOXIDE LEVEL 34 MEQ/L (21-32); CHLORIDE LEVEL 101 MEQ/L (98-107); CHOLESTEROL LEVEL 222 MG/DL (<200); CHOLESTEROL RISK RATIO 3.762 (<5); CREATININE FOR GFR 0.86 MG/DL (0.55-1.30); GLOMERULAR FILTRATION RATE > 60.0 (>58); GLUCOSE, FASTING 90 MG/DL (70-100); HDL CHOLESTEROL 59 MG/DL (>40); LDL CHOLESTEROL 145 MG/DL (<100); MAGNESIUM LEVEL 2.2 MG/DL (1.8-2.4); NON-HDL-C 163 MG/DL; POTASSIUM SERUM 4.1 MEQ/L (3.5-5.1); SODIUM LEVEL 139 MEQ/L (136-145); TOTAL PROTEIN 7.6 GM/DL (6.4-8.2); TRIGLYCERIDES LEVEL 92 MG/DL (<150)
== END ==
LOC: M SFHCPLAZ 15:00
PROVIDERS: ATTEND Internal Medicine
DX: R53.83 Other fatigue (principal); G35 Multiple sclerosis; R60.0 Localized edema; F34.1 Dysthymic disorder

== ENCOUNTER 2019-02-06 01:14 | Emergency (ER) | payer OTHER ==
[~2019-02-06] VITALS: Ht 165.1 cm; Wt 113.6 kg
[~2019-02-06 01:14] MED LIST changes: -VICO7.5T11 PO; +VICO7.5T12 PO
[2019-02-06 01:15] VITALS: BP 138/72
[2019-02-06] MEDS ORDERED: KETOROLAC 60 MG/2 ML VIAL (J1885) IM ONE (01:45)
[2019-02-06 02:06] LABS: HEMATOCRIT 41.6 % (36.0-47.0); HEMOGLOBIN 14.4 g/dl (12.0-15.5); MEAN CORPUSCULAR HEMOGLOBIN 33.2 pg (27.0-33.0); MEAN CORPUSCULAR HGB CONC 34.6 g/dl (32.0-36.5); MEAN CORPUSCULAR VOLUME 95.9 fl (80.0-96.0); PLATELET COUNT, AUTOMATED 280 10^3/uL (150-450); RED BLOOD COUNT 4.34 10^6/uL (4.00-5.40)
[2019-02-06 02:25] LABS: ERYTHROCYTE SEDIMENTATION RATE 31 mm/hr (0-20)
[2019-02-06 02:30] LABS: C REACTIVE PROTEIN QUANTITATIV 0.85 MG/DL (0.00-0.30); URIC ACID 5.3 MG/DL (2.6-6.0)
[2019-02-06] MEDS ORDERED: KEFL500C17 PO (02:33)
--- NOTE | 2019-02-06 09:05 | REP ---
RIGHT HAND SERIES: FOUR VIEWS. HISTORY: Pain in the right hand. No comparison images. FINDINGS: There is a large heterogeneous soft tissue calcific deposit in the dorsal soft tissues at the level of the carpus, consistent with chronic tendonitis. Joint spaces are preserved. No malalignment is seen. There is mild sclerosis and spurring at the 1st metacarpophalangeal joint. Bones, joints, and soft tissues are otherwise unremarkable. IMPRESSION: Large soft tissue calcific deposit in the extra-articular soft tissues at the dorsum of the wrist. Consistent with calcific tendonitis. Calcification within a ganglion cyst could have this appearance. Minimal osteoarthritis at the 1st carpometacarpal articulation. Electronically Signed by Torey Rivera MD 02/06/2019 09:13 A
== END 2019-02-06 02:38 | disposition home or self-care (01) ==
LOC: M ED 01:14
DX: L03.113 Cellulitis of right upper limb (principal); G35 Multiple sclerosis; M79.7 Fibromyalgia; M19.90 Unspecified osteoarthritis, unspecified site; F41.9 Anxiety disorder, unspecified; F32.9 Major depressive disorder, single episode, unspecified; J45.909 Unspecified asthma, uncomplicated; F17.210 Nicotine dependence, cigarettes, uncomplicated; Z88.2 Allergy status to sulfonamides; Z88.8 Allergy status to other drugs, medicaments and biological substances; Z79.899 Other long term (current) drug therapy; Z79.1 Long term (current) use of non-steroidal anti-inflammatories (NSAID)
CPT/HCPCS: 36415; 73130; 84550; 85027; 85652; 86140; 96372; 99283; J1885

== ENCOUNTER → 2019-07-30 | Outpatient (REF) | payer OTHER ==
[~2019-07-30] MED LIST changes: +KEFL500C17 PO
[2019-07-30 18:11] LABS: HEMATOCRIT 43.9 % (36.0-47.0); HEMOGLOBIN 14.8 g/dl (12.0-15.5); MEAN CORPUSCULAR HEMOGLOBIN 32.1 pg (27.0-33.0); MEAN CORPUSCULAR HGB CONC 33.7 g/dl (32.0-36.5); MEAN CORPUSCULAR VOLUME 95.2 fl (80.0-96.0); PLATELET COUNT, AUTOMATED 347 10^3/uL (150-450); RED BLOOD COUNT 4.61 10^6/uL (4.00-5.40); WHITE BLOOD COUNT 10.6 10^3/uL (4.0-10.0)
[2019-07-30 18:31] LABS: ALBUMIN 3.9 GM/DL (3.2-5.2); ALT/SGPT 30 U/L (12-78); BILIRUBIN,TOTAL 0.3 MG/DL (0.2-1.0); BLOOD UREA NITROGEN 15 MG/DL (7-18); CALCIUM LEVEL 9.5 MG/DL (8.5-10.1); CARBON DIOXIDE LEVEL 31 MEQ/L (21-32); CHLORIDE LEVEL 101 MEQ/L (98-107); CHOLESTEROL LEVEL 203 MG/DL (<200); CHOLESTEROL RISK RATIO 3.327 (<5); CREATININE FOR GFR 0.79 MG/DL (0.55-1.30); GLOMERULAR FILTRATION RATE > 60.0 (>58); GLUCOSE, FASTING 76 MG/DL (70-100); HDL CHOLESTEROL 61 MG/DL (>40); LDL CHOLESTEROL 123 MG/DL (<100); NON-HDL-C 142 MG/DL; POTASSIUM SERUM 4.1 MEQ/L (3.5-5.1); SODIUM LEVEL 136 MEQ/L (136-145); TOTAL PROTEIN 7.3 GM/DL (6.4-8.2); TRIGLYCERIDES LEVEL 95 MG/DL (<150)
[2019-07-30 18:40] LABS: FOLATE > 24.0 NG/ML
[2019-07-31 09:49] LABS: VITAMIN B12 LEVEL 473 PG/ML
== END ==
LOC: M SFHCPLAZ 15:41
PROVIDERS: ATTEND Internal Medicine
DX: E78.00 Pure hypercholesterolemia, unspecified (principal); R53.83 Other fatigue

== ENCOUNTER → 2020-05-19 | Outpatient (CLI) | payer OTHER ==
[~2020-05-19] MED LIST changes: -NABU-126 PO; +NABU-51 PO; +OXYC-1 PO; -OXYC15TA76 PO
[2020-05-19 16:40] LABS: BASO # 0.1 10^3/uL (0.0-0.2); BASO % 1.1 % (0.0-1.0); EOS # 0.3 10^3/uL (0.0-0.5); EOS % 3.3 % (0.0-3.0); HEMATOCRIT 44.6 % (36.0-47.0); HEMOGLOBIN 14.4 g/dl (12.0-15.5); LYMPH # 3.3 10^3/uL (1.5-5.0); MEAN CORPUSCULAR HEMOGLOBIN 31.1 pg (27.0-33.0); MEAN CORPUSCULAR HGB CONC 32.3 g/dl (32.0-36.5); MEAN CORPUSCULAR VOLUME 96.3 fl (80.0-96.0); MONO # 0.6 10^3/uL (0.0-0.8); MONO % 6.7 % (0.0-5.0); NEUTROPHILS # 5.1 10^3/uL (1.5-8.5); NEUTROPHILS % 53.5 % (36.0-66.0); PLATELET COUNT, AUTOMATED 345 10^3/uL (150-450); RED BLOOD COUNT 4.63 10^6/uL (4.00-5.40); WHITE BLOOD COUNT 9.4 10^3/uL (4.0-10.0)
[2020-05-19 17:00] LABS: ALBUMIN 3.8 GM/DL (3.2-5.2); ALT/SGPT 44 U/L (12-78); BILIRUBIN,TOTAL 0.3 MG/DL (0.2-1.0); BLOOD UREA NITROGEN 16 MG/DL (7-18); CALCIUM LEVEL 9.2 MG/DL (8.5-10.1); CARBON DIOXIDE LEVEL 32 MEQ/L (21-32); CHLORIDE LEVEL 102 MEQ/L (98-107); CREATININE FOR GFR 0.84 MG/DL (0.55-1.30); GLOMERULAR FILTRATION RATE > 60.0 (>51); GLUCOSE, FASTING 88 MG/DL (70-100); SODIUM LEVEL 140 MEQ/L (136-145); TOTAL PROTEIN 7.4 GM/DL (6.4-8.2)
[2020-05-19 17:06] LABS: HEPATITIS B SURFACE ANTIBODY NEGATIVE (POSITIVE)
== END ==
LOC: M WUC 13:36
PROVIDERS: ATTEND Psychiatry & Neurology Neurology
DX: G35 Multiple sclerosis (principal)

== ENCOUNTER 2020-09-04 09:24 | Outpatient (CLI) | payer OTHER ==
[~2020-09-04] VITALS: Ht 166.4 cm; Wt 104.5 kg
[~2020-09-04 09:24] MED LIST changes: -NABU-51 PO; +NABU-71 PO
[2020-09-04] MEDS ORDERED: diphenhydrAMINE 25MG CAP PO ONE (09:30)
[2020-09-04] MEDS ORDERED: methylPREDNISolone 125MG 2ML VIAL IV ONE (09:30)
[2020-09-04] MEDS ORDERED: ACETAMINOPHEN TAB 650MG DOSE (2X325MG) PO ONE (09:30)
[2020-09-04] MEDS ORDERED: OCRELIZUMAB 300 MG in NS 250 ML IV ONE (09:30)
[2020-09-04 09:47] VITALS: BP 139/73
[2020-09-04 10:40] VITALS: BP 113/57
[2020-09-04 11:10] VITALS: BP 128/71
[2020-09-04 11:40] VITALS: BP 122/68
[2020-09-04 12:10] VITALS: BP 130/62
[2020-09-04 12:55] VITALS: BP 119/69
== END 2020-09-04 13:30 | disposition home or self-care (01) ==
LOC: M INFU 09:24
PROVIDERS: ATTEND Psychiatry & Neurology Neurology
DX: G35 Multiple sclerosis (principal); Z88.2 Allergy status to sulfonamides; Z88.8 Allergy status to other drugs, medicaments and biological substances
CPT/HCPCS: 96365; 96366; 96375; J2350; J2930

== ENCOUNTER 2020-09-19 09:12 | Outpatient (CLI) | payer OTHER ==
[~2020-09-19] VITALS: Ht 166.4 cm; Wt 104.0 kg
[~2020-09-19 09:12] MED LIST changes: +ACETAMINOPHEN TAB 650MG DOSE (2X325MG) PO ONE; +OCRELIZUMAB 300 MG in NS 250 ML IV ONE; +diphenhydrAMINE 25MG CAP PO ONE; +methylPREDNISolone 125MG 2ML VIAL IV ONE
[2020-09-19 09:15] VITALS: BP 131/73
[2020-09-19 10:40] VITALS: BP 131/62
[2020-09-19 11:10] VITALS: BP 130/60
[2020-09-19 11:40] VITALS: BP 144/61
[2020-09-19 12:10] VITALS: BP 120/77
[2020-09-19 13:19] VITALS: BP 122/69
== END 2020-09-19 13:20 | disposition home or self-care (01) ==
LOC: M INFU 09:12
PROVIDERS: ATTEND Psychiatry & Neurology Neurology
DX: G35 Multiple sclerosis (principal); Z88.2 Allergy status to sulfonamides
CPT/HCPCS: 96365; 96366; 96375; J2350; J2930

== ENCOUNTER → 2020-09-19 | Outpatient (CLI) | payer OTHER ==
--- NOTE | 2020-09-23 13:57 | SLEEPHOME ---
DATE: 09/19/2020 ORDERED BY: Dr. Cassie Rockwell, Rheumatology Diagnostic home sleep testing was performed due to concern for the obstructive sleep apnea syndrome. For testing, a nocturnal T3 respiratory monitoring device was used. Continuous record was made of pulse, oxygen saturation, air flow, chest and abdominal strain, and body position. There was 9 hours and 59 minutes of data reviewed. There was 7 hours and 12 minutes marked as time in bed. During the interval marked time in bed, there were 113 respiratory events identified of 10 seconds in duration or greater for a respiratory event index of 15.7. The events were primarily obstructive. Eleven mixed apneas were seen. Baseline pulse rate 76. Pulse rate ranged 61-103. Baseline saturation was only 85%. Saturations fell to 75%. Testing was performed in both the supine and nonsupine positions. IMPRESSION: Abnormal home sleep testing with repetitive respiratory events and oxygen desaturations to 75% with a respiratory event index of 15.7 is consistent with the obstructive sleep apnea syndrome. RECOMMENDATION: The patient should be encouraged to undergo formal sleep evaluation.
== END ==
LOC: M SLEEP HO 09:14
PROVIDERS: ATTEND Internal Medicine
DX: R53.82 Chronic fatigue, unspecified (principal)

== ENCOUNTER → 2020-10-29 | Outpatient (CLI) | payer OTHER ==
[~2020-10-29] MED LIST changes: -ACETAMINOPHEN TAB 650MG DOSE (2X325MG) PO ONE; -OCRELIZUMAB 300 MG in NS 250 ML IV ONE; -diphenhydrAMINE 25MG CAP PO ONE; -methylPREDNISolone 125MG 2ML VIAL IV ONE
--- NOTE | 2020-10-29 13:40 | REPPI ---
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 FINDINGS: Right hand demonstrates relatively age-appropriate changes with very minimal periarticular sclerosis at the interphalangeal joints and 1st metacarpophalangeal joint. There is no evidence for acute or healed injury. Previously identified calcification in the soft tissue along the dorsum of the wrist is no longer evident. No periarticular calcifications, erosive changes or significant swelling noted Left hand demonstrates relatively age-appropriate changes with very minimal periarticular sclerosis at the interphalangeal joints and 1st metacarpophalangeal joint. There is no evidence for acute or healed injury. No periarticular calcifications, erosive changes or significant swelling noted.. IMPRESSION: Essentially age-appropriate bilateral hand radiograph series. No overt arthritic changes. Previously identified calcification in the subcutaneous tissue at the right wrist likely surgically removed. <Electronically signed by Obinna Campbell > 10/29/20 [id number]
--- NOTE | 2020-10-29 13:42 | REPPI ---
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 TECHNIQUE: AP, lateral, bilateral oblique views right and left wrist. FINDINGS: Left wrist demonstrates generalized age-related changes. No overt osteoarthritic or inflammatory arthritic are identified. No periarticular calcifications. Surrounding soft tissues are unremarkable. Right wrist demonstrates generalized age-related changes. No overt osteoarthritic or inflammatory arthritic are identified. No periarticular calcifications. Surrounding soft tissues are unremarkable. IMPRESSION: Normal age-appropriate bilateral wrist series. No overt arthritic changes appreciated. <Electronically signed by Obinna Campbell > 10/29/20 1005
--- NOTE | 2020-10-29 13:43 | REPPI ---
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 TECHNIQUE: AP, lateral, bilateral oblique views left foot. FINDINGS: Age-related degenerative changes are appreciated including subtle cortical irregularity and joint space narrowing at the interphalangeal joints as well as increased sclerosis at the base of the 1st toe proximal phalanx with minimal joint space narrowing. No acute fracture or dislocation. Lateral view demonstrates small calcaneal heel spur. IMPRESSION: Relatively age-related degenerative changes. <Electronically signed by Obinna Campbell > 10/29/20 [id number]
--- NOTE | 2020-10-29 13:53 | REPPI ---
INDICATION: M06.4 UNDIFFERIENTIATED INFLAMMATORY ARTHRITIS. COMPARISON: None. TECHNIQUE: Four views bilateral FINDINGS: No acute fracture or destructive osseous lesion. The mortise is intact. Plantar and retrocalcaneal heel spurs are seen bilaterally. There is no evidence of prominent marginal osteophytosis, subchondral sclerosis, or subchondral cyst formation. IMPRESSION: Bilateral chronic changes as described above. <Electronically signed by Madi Kim > 10/29/20 [id number]
== END ==
LOC: M PLALAB 12:40 → M PLAIMG 12:40
PROVIDERS: ATTEND Internal Medicine
DX: R76.8 Other specified abnormal immunological findings in serum (principal); R53.82 Chronic fatigue, unspecified; M06.4 Inflammatory polyarthropathy

== ENCOUNTER → 2020-10-29 | Outpatient (REF) | payer OTHER ==
[2020-10-29 15:32] LABS: APPEARANCE, URINE CLEAR (CLEAR); BACTERIA, URINE AUTO NEGATIVE (NEGATIVE); BASO # 0.1 10^3/uL (0.0-0.2); BASO % 1.1 % (0.0-1.0); BILIRUBIN, URINE AUTO NEGATIVE (NEGATIVE); BLOOD, URINE BLOOD NEGATIVE (NEGATIVE); COLOR, URINE YELLOW (YELLOW); EOS # 0.3 10^3/uL (0.0-0.5); EOS % 3.4 % (0.0-3.0); GLUCOSE, URINE (UA) AUTO NEGATIVE (NEGATIVE); HEMATOCRIT 46.4 % (36.0-47.0); HEMOGLOBIN 15.3 g/dl (12.0-15.5); KETONE, URINE AUTO NEGATIVE (NEGATIVE); LEUKOCYTE ESTERASE, URINE AUTO 1+ (NEGATIVE); LYMPH # 2.8 10^3/uL (1.5-5.0); LYMPH % 29.7 % (24.0-44.0); MEAN CORPUSCULAR HEMOGLOBIN 32.1 pg (27.0-33.0); MEAN CORPUSCULAR VOLUME 97.5 fl (80.0-96.0); MONO # 0.7 10^3/uL (0.0-0.8); MONO % 7.3 % (2.0-8.0); MUCUS, URINE SMALL (NEGATIVE); NEUTROPHILS # 5.4 10^3/uL (1.5-8.5); NITRITE, URINE AUTO NEGATIVE (NEGATIVE); PLATELET COUNT, AUTOMATED 361 10^3/uL (150-450); PROTEIN, URINE AUTO NEGATIVE (NEGATIVE); RBC, URINE AUTO 1 /HPF (0-3); RED BLOOD COUNT 4.76 10^6/uL (4.00-5.40); SPECIFIC GRAVITY URINE AUTO 1.016 (1.002-1.035); SQUAMOUS EPITHELIAL CELL UR AU 0 /HPF (0-6); UROBILINOGEN, URINE AUTO 0.2 mg/dL (0.0-2.0); WBC, URINE AUTO 3 /HPF (0-3); WHITE BLOOD COUNT 9.4 10^3/uL (4.0-10.0)
[2020-10-29 15:44] LABS: ALT/SGPT 34 U/L (12-78); BILIRUBIN,TOTAL 0.4 MG/DL (0.2-1.0); BLOOD UREA NITROGEN 16 MG/DL (7-18); CALCIUM LEVEL 9.9 MG/DL (8.5-10.1); CARBON DIOXIDE LEVEL 31 MEQ/L (21-32); CHLORIDE LEVEL 104 MEQ/L (98-107); CHOLESTEROL LEVEL 228 MG/DL (<200); CHOLESTEROL RISK RATIO 3.454 (<5); CREATININE FOR GFR 0.77 MG/DL (0.55-1.30); GLOMERULAR FILTRATION RATE > 60.0 (>51); GLUCOSE, FASTING 83 MG/DL (70-100); HDL CHOLESTEROL 66 MG/DL (>40); LDL CHOLESTEROL 132 MG/DL (<100); NON-HDL-C 162 MG/DL; POTASSIUM SERUM 4.3 MEQ/L (3.5-5.1); SODIUM LEVEL 140 MEQ/L (136-145); THYROID STIMULATING HORMONE 0.709 uIU/ML (0.358-3.740); TOTAL PROTEIN 7.8 GM/DL (6.4-8.2); TRIGLYCERIDES LEVEL 148 MG/DL (<150)
[2020-10-29 15:54] LABS: TOTAL PROTEIN,RANDOM URINE 12.7 MG/DL (0.0-12.0)
[2020-10-29 15:56] LABS: COMPLEMENT C3 136 MG/DL (90-180); COMPLEMENT C4 29 MG/DL (10-40); IRON (FE) 89 UG/DL (50-170); MAGNESIUM LEVEL 2.3 MG/DL (1.8-2.4); RHEUMATOID FACTOR QUANT < 10.0 IU/ML (<15.0)
[2020-10-29 15:59] LABS: ERYTHROCYTE SEDIMENTATION RATE 14 mm/hr (0-30)
[2020-10-29 16:03] LABS: TOTAL 25(OH) VITAMIN D 50.5 NG/ML (30.0-100.0)
[2020-10-29 16:04] LABS: VITAMIN B12 LEVEL 493 PG/ML (247-911)
[2020-10-30 11:40] LABS: DRVV SCREEN 41.4 SEC
== END ==
LOC: M SFHCPLAZ 12:37
PROVIDERS: ATTEND Internal Medicine
DX: E78.00 Pure hypercholesterolemia, unspecified (principal); Z11.59 Encounter for screening for other viral diseases; R53.83 Other fatigue

== ENCOUNTER → 2020-12-12 | Outpatient (CLI) | payer OTHER ==
--- NOTE | 2020-12-12 10:40 | REP ---
INDICATION: NICOTINE DEPEND. COMPARISON: None. TECHNIQUE: Dose reduction was performed utilizing CARE dose with automated adjustment of the kV and MAS according to patient size; iterative reconstruction, automated exposure control, as well as adaptive dose shielding. Helical scanning is acquired and 3 mm axial images re-formatted at lung windows. FINDINGS: Digital preliminary power brake operator radiograph is unremarkable. Axial CT images demonstrate that the lung gloria are free of infiltrate, mass, or significant pulmonary nodule. No pleural effusion is seen. No bony abnormality. The exam is otherwise unremarkable. IMPRESSION: Lung RADS category 1 findings. Repeat screening exam suggested in 1 year. <Electronically signed by Tyler Rivera > 12/12/20 1037
== END ==
LOC: M RAD 10:09
PROVIDERS: ATTEND Internal Medicine
DX: F17.200 Nicotine dependence, unspecified, uncomplicated (principal)

== ENCOUNTER 2021-03-23 09:02 | Outpatient (CLI) | payer OTHER ==
[~2021-03-23] VITALS: Ht 165.1 cm; Wt 104.5 kg
[~2021-03-23 09:02] MED LIST changes: +ACETAMINOPHEN TAB 650MG DOSE (2X325MG) PO ONE; +OCRELIZUMAB 600 MG in NS 500 ML IV ONE; +diphenhydrAMINE 25MG CAP PO ONE; +methylPREDNISolone 125MG 2ML VIAL IV ONE
[2021-03-23 09:26] VITALS: BP 166/81
[2021-03-23 10:40] VITALS: BP 143/66
[2021-03-23 11:10] VITALS: BP 142/64
[2021-03-23 12:25] VITALS: BP 135/64
[2021-03-23 13:56] VITALS: BP 118/59
== END 2021-03-23 14:22 | disposition home or self-care (01) ==
LOC: M INFU 09:02
PROVIDERS: ATTEND Psychiatry & Neurology Neurology
DX: G35 Multiple sclerosis (principal); Z88.2 Allergy status to sulfonamides; Z88.8 Allergy status to other drugs, medicaments and biological substances
CPT/HCPCS: 96365; 96366; 96375; J2350; J2930

== ENCOUNTER → 2021-11-02 | Outpatient (CLI) | payer OTHER ==
[~2021-11-02] MED LIST changes: -ACETAMINOPHEN TAB 650MG DOSE (2X325MG) PO ONE; -OCRELIZUMAB 600 MG in NS 500 ML IV ONE; -diphenhydrAMINE 25MG CAP PO ONE; -methylPREDNISolone 125MG 2ML VIAL IV ONE
[2021-11-02 15:55] LABS: HEMATOCRIT 41.7 % (36.0-47.0); HEMOGLOBIN 14.2 g/dl (12.0-15.5); MEAN CORPUSCULAR HEMOGLOBIN 33.1 pg (27.0-33.0); MEAN CORPUSCULAR HGB CONC 34.1 g/dl (32.0-36.5); MEAN CORPUSCULAR VOLUME 97.2 fl (80.0-96.0); PLATELET COUNT, AUTOMATED 291 10^3/uL (150-450); RED BLOOD COUNT 4.29 10^6/uL (4.00-5.40); WHITE BLOOD COUNT 10.1 10^3/uL (4.0-10.0)
[2021-11-02 16:24] LABS: ALBUMIN 3.7 GM/DL (3.2-5.2); ALT/SGPT 44 U/L (12-78); BILIRUBIN,TOTAL 0.3 MG/DL (0.2-1.0); BLOOD UREA NITROGEN 16 MG/DL (7-18); CALCIUM LEVEL 9.8 MG/DL (8.5-10.1); CARBON DIOXIDE LEVEL 29 MEQ/L (21-32); CHLORIDE LEVEL 104 MEQ/L (98-107); CHOLESTEROL LEVEL 252 MG/DL (<200); CHOLESTEROL RISK RATIO 4.581 (<5); CREATININE FOR GFR 0.84 MG/DL (0.55-1.30); GLOMERULAR FILTRATION RATE > 60.0 (>51); GLUCOSE, FASTING 85 MG/DL (70-100); HDL CHOLESTEROL 55 MG/DL (>40); LDL CHOLESTEROL 162 MG/DL (<100); NON-HDL-C 197 MG/DL; POTASSIUM SERUM 3.9 MEQ/L (3.5-5.1); SODIUM LEVEL 139 MEQ/L (136-145); TOTAL PROTEIN 7.3 GM/DL (6.4-8.2); TRIGLYCERIDES LEVEL 176 MG/DL (<150)
[2021-11-02 17:44] LABS: EOSINOPHILS 4 % (0-3); LYMPHOCYTES 40 % (16-44); MONOCYTES 10 % (0-5); NEUTROPHILS 46 % (28-66); PLATELET ESTIMATE NORMAL (NORMAL)
== END ==
LOC: M PLALAB 12:28
PROVIDERS: ATTEND Internal Medicine
DX: E78.00 Pure hypercholesterolemia, unspecified (principal)

== ENCOUNTER 2022-04-05 07:45 | Outpatient (CLI) | payer OTHER ==
[2022-04-05] VITALS (7 sets, daily range): BP systolic 111–147; BP diastolic 58–79
[~2022-04-05] VITALS: Ht 167.6 cm; Wt 113.6 kg
[~2022-04-05 07:45] MED LIST changes: +ACETAMINOPHEN TAB 650MG DOSE (2X325MG) PO ONE; -MAXA10TA14 PO; +OCRELIZUMAB 600 MG in NS 500 ML IV ONE; +RIZA10TA64 PO; +diphenhydrAMINE 25MG CAP PO ONE; +methylPREDNISolone 125MG 2ML VIAL IV ONE
[2022-04-05] MEDS ORDERED: OCRELIZUMAB 600 MG in NS 500 ML IV ONE (08:00)
[2022-04-05] MEDS ORDERED: diphenhydrAMINE 25MG CAP PO ONE (08:00)
[2022-04-05] MEDS ORDERED: ACETAMINOPHEN TAB 650MG DOSE (2X325MG) PO ONE (08:00)
[2022-04-05] MEDS ORDERED: methylPREDNISolone 125MG 2ML VIAL IV ONE (08:00)
== END 2022-04-05 12:30 | disposition home or self-care (01) ==
LOC: M INFU 07:45
PROVIDERS: ATTEND Psychiatry & Neurology Neurology
DX: G35 Multiple sclerosis (principal); Z88.1 Allergy status to other antibiotic agents; Z88.2 Allergy status to sulfonamides
CPT/HCPCS: 96365; 96366; J2350; J2930

== ENCOUNTER → 2022-06-16 | Outpatient (CLI) | payer OTHER ==
[~2022-06-16] MED LIST changes: -ACETAMINOPHEN TAB 650MG DOSE (2X325MG) PO ONE; -OCRELIZUMAB 600 MG in NS 500 ML IV ONE; -diphenhydrAMINE 25MG CAP PO ONE; -methylPREDNISolone 125MG 2ML VIAL IV ONE
== END ==
LOC: M RAD 08:07
PROVIDERS: ATTEND Internal Medicine
DX: F17.200 Nicotine dependence, unspecified, uncomplicated (principal)

== ENCOUNTER → 2022-06-16 | Outpatient (CLI) | payer OTHER | LOC: M WHC 08:44 | PROVIDERS: ATTEND Internal Medicine | DX: Z12.31 Encounter for screening mammogram for malignant neoplasm of breast (principal) ==

== ENCOUNTER 2022-10-11 08:50 | Outpatient (CLI) | payer OTHER ==
[~2022-10-11] VITALS: Ht 167.6 cm; Wt 114.0 kg
[2022-10-11] MEDS ORDERED: diphenhydrAMINE 25MG CAP PO ONE (09:15)
[2022-10-11] MEDS ORDERED: methylPREDNISolone 125MG 2ML VIAL IV ONE (09:15)
[2022-10-11] MEDS ORDERED: ACETAMINOPHEN TAB 650MG DOSE (2X325MG) PO ONE (09:15)
[2022-10-11] MEDS ORDERED: OCRELIZUMAB 600 MG in NS 500 ML IV ONE (09:15)
[2022-10-11 09:45] VITALS: BP 150/70
[2022-10-11 10:15] VITALS: BP 120/60
[2022-10-11 10:45] VITALS: BP 119/74
[2022-10-11 12:15] VITALS: BP 117/70
== END 2022-10-11 13:15 ==
LOC: M INFU 08:50
PROVIDERS: ATTEND Psychiatry & Neurology Neurology
DX: G35 Multiple sclerosis (principal); Z88.0 Allergy status to penicillin; Z88.8 Allergy status to other drugs, medicaments and biological substances
CPT/HCPCS: 96365; 96366; 96375; J2350; J2930

== ENCOUNTER 2023-05-10 07:42 | Day surgery (SDC) | payer OTHER ==
[~2023-05-10] VITALS: Ht 167.6 cm; Wt 114.8 kg
[~2023-05-10 07:42] MED LIST changes: +ACET-683 PO; +ALBU2.5V10 INH; +CHLO25TA PO; +IBUP200C89 PO; +LIDOCAINE 2% 100MG/5ML SDV (FOR ANES.) As Ordered ONE; +NS 1,000 ML IV ONE; +OCRE300I IV; -OXYB5TAB10 PO; +OXYB5TAB11 PO; +RA N1TAB PO; +SERT50TA29 PO; +TIZA10TA PO; +VENTAER INH; +VITA100093 PO; +VITMTA PO; +propofoL 200 MG/20 ML VIAL As Ordered ONE
[2023-05-10] MEDS ORDERED: FAMOTIDINE IV BAG 20 MG in IV 1 EA IV ONE (08:05)
[2023-05-10] MEDS ORDERED: BICITRA 30ML SOLN UDC PO ONE (08:05)
[2023-05-10 09:32] VITALS: TEMP 97.1
[2023-05-10 09:45] VITALS: BP 128/58; O2SAT 95
== END 2023-05-10 10:17 | disposition home or self-care (01) ==
LOC: M OPP 07:42
PROVIDERS: ATTEND Internal Medicine Gastroenterology
DX: Z12.11 Encounter for screening for malignant neoplasm of colon (principal); Z80.0 Family history of malignant neoplasm of digestive organs; K57.30 Diverticulosis of large intestine without perforation or abscess without bleeding; K64.8 Other hemorrhoids; F17.200 Nicotine dependence, unspecified, uncomplicated; Z79.1 Long term (current) use of non-steroidal anti-inflammatories (NSAID); Z79.51 Long term (current) use of inhaled steroids; Z79.83 Long term (current) use of bisphosphonates; Z79.899 Other long term (current) drug therapy; Z88.1 Allergy status to other antibiotic agents; Z88.2 Allergy status to sulfonamides; Z88.5 Allergy status to narcotic agent
CPT/HCPCS: 45378; S0028

== ENCOUNTER 2023-08-29 11:47 | Outpatient (CLI) | payer OTHER ==
[~2023-08-29] VITALS: Ht 165.1 cm; Wt 115.9 kg
[~2023-08-29 11:47] MED LIST changes: -LIDOCAINE 2% 100MG/5ML SDV (FOR ANES.) As Ordered ONE; -NS 1,000 ML IV ONE; -OXYB5TAB11 PO; +OXYB5TAB14 PO; -propofoL 200 MG/20 ML VIAL As Ordered ONE
[2023-08-29 12:05] VITALS: BP 157/97; O2SAT 93
[2023-08-29] MEDS: ACETAMINOPHEN TAB 650MG DOSE (2X325MG) PO ONE (12:32)
[2023-08-29] MEDS: diphenhydrAMINE 25MG CAP PO ONE (12:32)
[2023-08-29] MEDS: methylPREDNISolone 125MG 2ML VIAL IV ONE (12:32)
[2023-08-29] MEDS: OCRELIZUMAB 600 MG in NS 500 ML IV ONE (12:55)
[2023-08-29 14:00] VITALS: BP 133/77; O2SAT 97
[2023-08-29 15:00] VITALS: BP 126/64; O2SAT 94
[2023-08-29 16:49] VITALS: BP 133/72; O2SAT 94
[2023-08-29 17:00] VITALS: BP 133/72; TEMP 36.6; O2SAT 94
== END 2023-08-29 17:00 | disposition home or self-care (01) ==
LOC: M INFU 11:47
PROVIDERS: ATTEND Psychiatry & Neurology Neurology
DX: G35 Multiple sclerosis (principal); Z88.2 Allergy status to sulfonamides; Z88.1 Allergy status to other antibiotic agents; Z88.8 Allergy status to other drugs, medicaments and biological substances
CPT/HCPCS: 36415; 96365; 96366; 96375; J2350; J2919

== ENCOUNTER 2024-05-01 07:06 | Outpatient (CLI) | payer OTHER ==
[~2024-05-01] VITALS: Ht 165.1 cm; Wt 120.0 kg
[2024-05-01 07:35] VITALS: BP 123/78; O2SAT 95
[2024-05-01] MEDS: methylPREDNISolone 125MG 2ML VIAL IV ONE (07:42)
[2024-05-01] MEDS: diphenhydrAMINE 25MG CAP PO ONE (07:42)
[2024-05-01] MEDS: ACETAMINOPHEN 325 MG TAB PO ONE (07:43)
[2024-05-01] MEDS: OCRELIZUMAB 600 MG in NS 500 ML IV ONE (08:10)
[2024-05-01 08:45] VITALS: BP 126/64; O2SAT 96
[2024-05-01 09:15] VITALS: BP 119/61; O2SAT 99
[2024-05-01 09:45] VITALS: BP 117/71; O2SAT 99
[2024-05-01 10:15] VITALS: BP 119/57; O2SAT 90
[2024-05-01 11:45] VITALS: BP 119/69; O2SAT 96
== END 2024-05-01 12:00 ==
LOC: M INFU 07:06
PROVIDERS: ATTEND Psychiatry & Neurology Neurology
DX: G35 Multiple sclerosis (principal); Z88.1 Allergy status to other antibiotic agents; Z88.2 Allergy status to sulfonamides; Z88.8 Allergy status to other drugs, medicaments and biological substances; Z91.09 Other allergy status, other than to drugs and biological substances
CPT/HCPCS: 96365; 96366; 96375; J2350; J2919

== ENCOUNTER → 2025-01-25 | Outpatient (REF) | payer OTHER ==
[~2025-01-25] MED LIST changes: -PREG50CA PO; +PREG50CA87 PO
== END ==
LOC: M LAB REF 15:19
PROVIDERS: ATTEND Podiatrist Foot & Ankle Surgery
DX: L72.0 Epidermal cyst (principal)